=== PATIENT | male | born 1980 | race Caucasian/White ===

== ENCOUNTER 2018-03-11 08:53 | Outpatient (CLI) | payer OTHER ==
--- NOTE | 2018-03-11 17:47 | MRI Report ---
Reason: PAIN IN LEFT KNEE Procedure Date: 03/11/2018 Accession Number: [id number] / [id number] Procedure: MRI - Knee LT W/O CPT Code: FULL RESULT: EXAM: LEFT KNEE MRI WITHOUT CONTRAST. EXAM DATE: 03/11/2018 09:51 AM. CLINICAL HISTORY: Left knee pain, tenderness, and clicking. COMPARISON: None. TECHNIQUE: Multiplanar, multisequence T1-weighted and fluid-sensitive sequences of the knee without contrast. Other: None. FINDINGS: Bones: There is an approximately 5 x 4 x 3 mm well-circumscribed T2 hyperintense and T1 hypointense intramedullary lesion at the lateral femoral condyle. Small bone island at the lateral femoral condyle. No acute fracture. Small marginal osteophytes at the femoral condyles and medial tibial plateau. No subluxation. 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 Medial Meniscus: Focal radial oblique tear at the medial meniscal body. Small focal oblique tear at the posterior medial aspect of the posterior horn. Small perimeniscal cyst adjacent to the posterior horn. Lateral Meniscus: The lateral meniscus is intact. Cruciate Ligaments: The anterior and posterior cruciate ligaments are intact. Collateral Ligaments: The medial collateral and lateral collateral ligamentous structures are intact. Tendons: The quadriceps, patellar, semimembranosus, and popliteus tendons are unremarkable. Musculature: No edema or fatty atrophy. Other: No effusion. No popliteal cyst. No loose bodies. The medial and lateral retinacula are intact. The subcutaneous tissues and fat pads are unremarkable. IMPRESSION: 1. Oblique tear is at the posterior horn and body of the medial meniscus. Small perimeniscal cyst adjacent to the posterior horn medial meniscus. 2. A small 5 x 4 x 3 mm nonaggressive appearing intramedullary lesion at the lateral femoral condyle which may represent a cyst or enchondroma. 3. 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 [facility] MUSCULOSKELETAL RADIOLOGY SECTION
== END 2018-03-11 08:54 | disposition home or self-care (01) ==
LOC: DI 08:53
PROVIDERS: ATTEND Student in an Organized Health Care Education/Training Program
DX: S83.242A Other tear of medial meniscus, current injury, left knee, initial encounter (principal); M25.862 Other specified joint disorders, left knee; M94.262 Chondromalacia, left knee

== ENCOUNTER 2018-08-30 14:52 | Emergency (ER) | payer OTHER ==
--- NOTE | 2018-08-30 14:57 | ED Physician Documentation ---
PD HPI LOWER EXT INJURY - Stated complaint Stated Complaint: RT KNEE PAIN - History obtained from History obtained from: Patient - History of Present Illness PD HPI LOW EXT INJURY LOCATION: Right, Knee Type of injury: No: Fall, Twist Timing - onset: Yesterday (had some pain in right knee yesterday, without apparent injury. Has feeling of pressure in it and noted some swelling in knee today. Pain throughout the knee. Also having some pain around medial aspect of patella.) Improved by: Rest Worsened by: Moving. No: Palpating Associated symptoms: Swelling (feels some effusion of the knee.). No: Weakness, Numbness Similar symptoms before: Diagnosis (has had knee injuries with ACL, meniscus repairs in the past.) Recently seen: Not recently seen Review of Systems Constitutional: denies: Fever, Chills, Myalgias Throat: denies: Sore throat Respiratory: denies: Cough Skin: denies: Rash, Lesions Musculoskeletal: reports: Joint pain (right knee only) PD PAST MEDICAL HISTORY - Past Surgical History Past Surgical History: Yes Ortho: ACL reconstruction - Present Medications Home Medications: Ambulatory Orders Medication Instructions Recorded Confirmed Acetaminophen [Tylenol Extra 1,000 mg PO Q6HR 09/08/15 08/30/18 Strength] Ibuprofen [Motrin] 600 mg PO TID #30 tab 09/08/15 08/30/18 Hydrocodone/Acetaminophen [[place] 1 each PO Q6H PRN #15 tablet 08/30/18 5-325 Tablet] - Allergies Allergies/Adverse Reactions: Allergies Allergy/AdvReac Type Severity Reaction Status Date / Time No Known Drug Allergies Allergy Verified 08/30/18 15:01 - Social History Does the pt smoke?: No Smoking Status: Never smoker Does the pt drink ETOH?: Yes Does the pt have substance abuse?: No - Immunizations Immunizations are current?: Yes - POLST Patient has POLST: No PD ED PE NORMAL - Vitals Vital signs reviewed: Yes - General General: Alert and oriented X 3, Well developed/nourished - Derm Derm: Normal color, Warm and dry, No rash - Extremities Extremities: Other (right knee with some tenderness medial aspect patellar and distal quads. Mild cellophane feeling in that area with ROM of the knee, c/w likely some tendonitis. There is mild effusion of the knee as well, but not enough to even lose peripatellar "dimples". ACL firm and not painful. Collateral testing not loos nor hurting. Meniscal testing does cause some pain laterally and posteriorly. No locking. ) Results - Vitals Vitals: Vital Signs - 24 hr 08/30/18 14:59 Temperature 36.3 C L Heart Rate 74 Respiratory 16 Rate Blood Pressure 133/85 H O2 Saturation 98 Oxygen O2 Source Room air - Rads (name of study) right knee xray Radiology: Prelim report reviewed (prior surgical changes in place. No loose bodies nor fractures. ), See rad report PD MEDICAL DECISION MAKING - ED course Complexity details: reviewed results, considered differential (not enough effusion for tapping to have benefit. Seems likely meniscal flap or such with inflammation. ), d/w patient Departure - Departure Disposition: 01 Home, Self Care Clinical Impression: Meniscal injury Qualifiers: Encounter type: initial encounter Laterality: right Qualified Code(s): S83.8X1A - Sprain of other specified parts of right knee, initial encounter Patellar tendonitis Qualifiers: Laterality: right Qualified Code(s): M76.51 - Patellar tendinitis, right knee Condition: Stable Record reviewed to determine appropriate education?: Yes Instructions: ED Meniscal Injury Knee Poss Follow-Up: Basim Young MD [Primary Care Provider] - Prescriptions: Hydrocodone/Acetaminophen [[place] 5-325 Tablet] 1 each PO Q6H PRN #15 tablet PRN Reason: Pain Comments: Use 1 of your knee braces and crutches to help support the knee when up and around for the next week or so until follow-up. If he uses straight knee brace, that is okay. If he use a hinged 1 then set it for 0 to 30 degrees to minimize flexion beyond that point. Use some ibuprofen or naproxen 3 times daily. Add hydrocodone if needed for pain. Crutches as needed for partial weightbearing until improving. It seems like some element of patellar tendinitis in the front. However your deeper pain in the swelling of the joint seems likely to be meniscal. Your basic x-ray appears normal with the screws in place. Follow-up with your primary care and or orthopedics for further evaluation. They can decide if further imaging such as MRI is appropriate. Discharge Date/Time: 08/30/18 16:50
[2018-08-30 15:02] VITALS: BP 133/85
[2018-08-30] MEDS ORDERED: HYDROcod/ACETAM 5/325 MG TABLET PO STA (15:36)
--- NOTE | 2018-08-30 16:45 | XRAY Report ---
Reason: knee pain for several days Procedure Date: 08/30/2018 Accession Number: [id number] / [id number] Procedure: XR - Knee 3 View RT CPT Code: FULL RESULT: EXAM: RIGHT KNEE RADIOGRAPHY EXAM DATE: 08/30/2018 04:18 PM. CLINICAL HISTORY: Knee pain and swelling for several days. COMPARISON: KNEE 4 VIEW RT 07/09/2015 2:42 PM. TECHNIQUE: 3 views. FINDINGS: Bones: Interval ACL repair. No acute traumatic or destructive bony abnormalities. Joints: Joint effusion. No subluxations. Soft Tissues: Unremarkable. IMPRESSION: 1. Interval ACL repair. 2. Joint effusion. 3. No acute bony abnormalities. [facility]
== END 2018-08-30 16:50 | disposition home or self-care (01) ==
LOC: ED 14:52
DX: S83.8X1A Sprain of other specified parts of right knee, initial encounter (principal); X58.XXXA Exposure to other specified factors, initial encounter; M76.51 Patellar tendinitis, right knee; M25.461 Effusion, right knee
CPT/HCPCS: 73562; 99283; A9270

== ENCOUNTER 2018-09-19 07:10 | Outpatient (CLI) | payer OTHER ==
--- NOTE | 2018-09-22 08:19 | MRI Report ---
Reason: PAIN IN RIGHT KNEE Procedure Date: 09/19/2018 Accession Number: [id number] / [id number] Procedure: MRI - Knee RT W/O CPT Code: FULL RESULT: EXAM: RIGHT KNEE MRI WITHOUT CONTRAST EXAM DATE: 09/19/2018 07:28 AM. CLINICAL HISTORY: Right knee pain. History of ACL repair. COMPARISON: KNEE 3 VIEW RT 08/30/2018 4:05 PM. TECHNIQUE: Multiplanar, multisequence T1-weighted and fluid-sensitive sequences of the knee without contrast. Other: None. FINDINGS: Bones: There is artifact from the ACL graft. There is a screw through the proximal tibia, distal to the tibial tuberosity. There are no visible fractures. There are no foci of marrow edema. Articular Cartilage: There is mild erosion of the hyaline cartilage of the lateral compartment with a focal subchondral defect in the lateral femoral condyle suggestive of a prior osteochondral injury. There is minimal surface erosion in the medial compartment. Medial Meniscus: The medial meniscus is intact. Lateral Meniscus: There is truncation of the free margin of the posterior horn and body of the lateral meniscus suggestive of a small tear. Cruciate Ligaments: The ACL graft is intact. The PCL appears normal. There is a focus of predominantly intermediate T1, low T2 signal tissue with central high T2 signal, anterior to the ACL graft at its entry into the tibial tunnel. The findings are suggestive of a small focus of fibrosis. Collateral Ligaments: The medial collateral and lateral collateral ligamentous structures are intact. Tendons: The quadriceps, patellar, semimembranosus, and popliteus tendons are unremarkable. Musculature: No edema or fatty atrophy. Other: There is a small joint effusion. No popliteal cyst. No loose bodies. The medial and lateral retinacula are intact. The subcutaneous tissues and fat pads are unremarkable. IMPRESSION: 1. Tear of the free margin of the posterior horn and body of the lateral meniscus. 2. Prior osteochondral injury of the lateral femoral condyle. 3. Small joint effusion. 4. Focal scar tissue anterior to the ACL graft. [facility]
== END 2018-09-19 07:11 | disposition home or self-care (01) ==
LOC: DI 07:10
DX: S83.281A Other tear of lateral meniscus, current injury, right knee, initial encounter (principal); M25.461 Effusion, right knee

== ENCOUNTER 2018-10-07 11:00 | Emergency (ER) | payer OTHER ==
[2018-10-07 11:15] VITALS: BP 128/73
--- NOTE | 2018-10-07 11:46 | XRAY Report ---
Reason: injury Procedure Date: 10/07/2018 Accession Number: [id number] / [id number] Procedure: XR - Foot 3 View LT CPT Code: FULL RESULT: EXAM: LEFT FOOT RADIOGRAPHY EXAM DATE: 10/07/2018 11:31 AM. CLINICAL HISTORY: Heavy object fell onto foot 3 days ago. Foot injury. Pain focal to the dorsal aspect of left foot. COMPARISON: None. TECHNIQUE: 3 views. FINDINGS: Bones: Small irregular calcifications are seen along the medial aspect of the distal left talus seen only on the frontal view the largest measuring 2 mm. No other osseous abnormalities. Joints: Normal. No subluxations. Soft Tissues: Soft tissue swelling along the dorsal left foot. No radiopaque foreign bodies. IMPRESSION: 1. Calcific densities by the medial distal left talus, as described which may represent tiny chip fracture fragments in the appropriate clinical setting and less typical for accessory ossicle or changes related to prior trauma/degenerative changes. No other osseous abnormalities. 2. Soft tissue edema. [facility]
--- NOTE | 2018-10-07 12:09 | ED Physician Documentation ---
PD HPI LOWER EXT INJURY - Stated complaint Stated Complaint: LT FOOT PX - Chief complaint Chief Complaint: Ext Problem - History obtained from History obtained from: Patient - History of Present Illness PD HPI LOW EXT INJURY LOCATION: Left, Foot Type of injury: Blunt / blow (a piece of wood fell ontop of his foot) Where injury occurred: Home Timing - duration: Days (2) Timing - details: Abrupt onset Improved by: Rest Worsened by: Palpating Associated symptoms: No: Weakness, Numbness, Tingling, Swelling, Discolored Contributing factors: No: Anticoagulated, Prior ortho surgery, Prosthetic joint Similar symptoms before: Has not had sx before Recently seen: Not recently seen Review of Systems Ten Systems: 10 systems reviewed and negative Constitutional: denies: Fever, Chills Skin: reports: Reviewed and negative Musculoskeletal: reports: Extremity pain, Extremity swelling Neurologic: denies: Focal weakness, Numbness PD PAST MEDICAL HISTORY - Past Medical History Past Medical History: No - Past Surgical History Past Surgical History: Yes Ortho: ACL reconstruction - Present Medications Home Medications: Ambulatory Orders Medication Instructions Recorded Confirmed Acetaminophen [Tylenol Extra 1,000 mg PO Q6HR 09/08/15 08/30/18 Strength] Ibuprofen [Motrin] 600 mg PO TID #30 tab 09/08/15 08/30/18 Hydrocodone/Acetaminophen [[place] 1 each PO Q6H PRN #15 tablet 08/30/18 5-325 Tablet] - Allergies Allergies/Adverse Reactions: Allergies Allergy/AdvReac Type Severity Reaction Status Date / Time No Known Drug Allergies Allergy Verified 10/07/18 11:15 - Social History Does the pt smoke?: No Smoking Status: Never smoker Does the pt drink ETOH?: Yes Does the pt have substance abuse?: No - Immunizations Immunizations are current?: Yes - POLST Patient has POLST: No PD ED PE NORMAL - Vitals Vital signs reviewed: Yes - General General: Alert and oriented X 3, No acute distress, Well developed/nourished - HEENT HEENT: Atraumatic - Neck Neck: Supple, no meningeal sign - Cardiac Cardiac: RRR - Respiratory Respiratory: No respiratory distress - Abdomen Abdomen: Non distended - Male Male : Deferred - Rectal Rectal: Deferred - Derm Derm: Normal color, Warm and dry, No rash, Other (mild abrasion to top of L foot ) - Extremities Extremities: No deformity, Normal ROM s pain, Other (mild swelling to dorsum of left midfoot/ankle with overlying small abrasion, mild tenderness over the dorsum of the midfoot and proximal foot.) - Neuro Neuro: Alert and oriented X 3 Eye Opening: Spontaneous Motor: Obeys Commands Verbal: Oriented GCS Score: 15 - Psych Psych: Normal mood, Normal affect - Free text exam Free text exam: Patient able to bear weight Results - Vitals Vitals: Vital Signs - 24 hr 10/07/18 11:13 Temperature 36.7 C Heart Rate 69 Respiratory 18 Rate Blood Pressure 128/73 O2 Saturation 100 Oxygen O2 Source Room air - Rads (name of study) No standard instances Radiology: Final report received (L medial distal left talus with possible tiny chip fracture. ) PD MEDICAL DECISION MAKING - ED course Complexity details: reviewed results, re-evaluated patient, considered differential, d/w patient ED course: DDx - fracture, contusion, sprain 38 y/o m with likely tiny chip fracture off the L medial talus likely on xray. Pt has been weight bearing on this for 2 days and has some swelling but able to bear weight here. Advised, RICE and NSAIDs. Pt can continue to bear weight as tolerated and [place] Departure - Departure Disposition: 01 Home, Self Care Clinical Impression: Displaced avulsion fracture (chip fracture) of left talus, initial encounter for closed fracture Condition: Stable Record reviewed to determine appropriate education?: Yes Follow-Up: your, doctor [Other] Comments: You have a tiny chip fracture off the talus of your left foot. Take ibuprofen 600mg three times a day to reduce pain and swelling. ICe and elevate as much as possible. You can bear weight on this injury as tolerated. Follow up with Orthopedics in 1-2 weeks to recheck your symptoms.
== END 2018-10-07 12:24 | disposition home or self-care (01) ==
LOC: ED 11:00
DX: S92.152A Displaced avulsion fracture (chip fracture) of left talus, initial encounter for closed fracture (principal); W20.8XXA Other cause of strike by thrown, projected or falling object, initial encounter; Y92.009 Unspecified place in unspecified non-institutional (private) residence as the place of occurrence of the external cause
CPT/HCPCS: 99282; 99283

== ENCOUNTER 2019-10-30 23:24 | Outpatient (CLI) | payer OTHER | END 2019-10-30 23:25 | disposition critical access hospital (66) | LOC: EMS 23:24 | PROVIDERS: ATTEND Surgery | DX: S39.91XA Unspecified injury of abdomen, initial encounter (principal); W39.XXXA Discharge of firework, initial encounter; Y92.414 Local residential or business street as the place of occurrence of the external cause | CPT/HCPCS: A0425; A0427 ==

== ENCOUNTER 2019-10-30 23:43 | Inpatient (IN) | payer OTHER ==
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
[2019-10-30] MEDS ORDERED: TETANUS/DIPHTHERIA/PERTUSSIS 0.5 ML SYRINGE IM ONE (23:57)
[2019-10-30] MEDS ORDERED: HYDROmorphone 1 MG/ML CARPUJECT IVP STA (23:57)
[2019-10-31 00:01] LABS: BASOPHILS % (AUTO) 0.5 %; EOSINOPHILS # (AUTO) 0.1 10^3/uL (0.0-0.7); EOSINOPHILS % (AUTO) 1.1 %; HGB - HEMOGLOBIN 12.7 g/dL (14.0-18.0); LYMPHOCYTES # (AUTO) 3.3 10^3/uL (1.5-3.5); LYMPHOCYTES % (AUTO) 52.2 %; MEAN CORPUSCULAR HEMOGLOBIN 30.7 pg (27.0-31.0); MEAN CORPUSCULAR HGB CONC 33.5 g/dL (32.0-36.0); MEAN CORPUSCULAR VOLUME 91.5 fL (80.0-94.0); MEAN PLATELET VOLUME 8.4 fL (7.4-11.4); MONOCYTES # (AUTO) 0.4 10^3/uL (0.0-1.0); MONOCYTES % (AUTO) 6.7 %; NEUTROPHILS # (AUTO) 2.5 10^3/uL (1.5-6.6); NEUTROPHILS % (AUTO) 39.2 %; PLT - PLATELET COUNT 293 10^3/uL (130-450); RED BLOOD COUNT 4.14 10^6/uL (4.70-6.10); RED CELL DISTRIBUTION WIDTH 12.6 % (12.0-15.0); WHITE BLOOD COUNT 6.3 x10^3/uL (4.8-10.8)
[2019-10-31] MEDS ORDERED: IOVERSOL 320 100 ML VIAL IVP ONE ×2 (00:07→00:40)
[2019-10-31 00:10] LABS: BILIRUBIN,URINE NEGATIVE (NEGATIVE); GLUCOSE, URINE (UA) NEGATIVE (NEGATIVE); KETONES,URINE (UA) TRACE mg/dL (NEGATIVE); LEUKOCYTE ESTERASE, URINE NEGATIVE (NEGATIVE); NITRITE,URINE NEGATIVE (NEGATIVE); OCCULT BLOOD,URINE NEGATIVE (NEGATIVE); PROTEIN,URINE NEGATIVE (NEGATIVE); UROBILINOGEN,URINE 0.2 (NORMAL) E.U./dL (NORMAL)
[2019-10-31 00:11] LABS: ALBUMIN 4.5 g/dL (3.2-5.5); ALBUMIN/GLOBULIN RATIO 1.9 (1.0-2.2); BILIRUBIN,TOTAL 0.4 mg/dL (0.2-1.0); CALCIUM 8.4 mg/dL (8.5-10.3); CREATININE 1.2 mg/dL (0.6-1.2); TOTAL PROTEIN 6.9 g/dL (6.7-8.2)
[2019-10-31 00:12] LABS: CLARITY,URINE CLEAR (CLEAR)
[2019-10-31] MEDS ORDERED: PROPOFOL ONE (00:18)
[2019-10-31] MEDS ORDERED: SUCCINYLCHOLINE 200 MG/10 ML VIAL ONE (00:21)
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
[2019-10-31] MEDS ORDERED: HYDROmorphone 1 MG/ML CARPUJECT IVP STA (00:47)
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
[2019-10-31] MEDS ORDERED: LACTATED RINGERS 1,000 ML IV ONE ×3 (02:00→04:28)
[2019-10-31] MEDS ORDERED: SUGAMMADEX 200 MG/2 ML VIAL IVP ONE (02:29)
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
[2019-10-31] MEDS ORDERED: D5NS W/20 MEQ KCL 1,000 ML IV SCH (04:00)
[2019-10-31] MEDS: HYDROmorphone 1 MG/ML CARPUJECT ONE ×2 (04:03→04:13)
[2019-10-31] MEDS: POTASSIUM CHLOR 10 MEQ/100 ML 10 MEQ/100 ML BAG IV SCH ×2 (05:05→06:22)
[2019-10-31] MEDS: HYDROmorphone PCA 20MG/100ML IV PRN ×3 (05:34→14:34)
[2019-10-31] MEDS: SODIUM CHLORIDE FLUSH 0.9% 10 ML SYRINGE IVP PRN ×2 (05:58→06:20)
[2019-10-31] MEDS ORDERED: HYDROmorphone 0.5 MG/0.5 ML SYRINGE ONE (05:58)
[2019-10-31] MEDS: ACETAMINOPHEN 1,000 MG/100 ML 100 ML IV SCH ×3 (06:22→18:03)
[2019-10-31] MEDS ORDERED: INSULIN ASPART 300 UNIT/3 ML PEN SUBQ SCH (08:00)
[2019-10-31 08:10] LABS: ALBUMIN 3.9 g/dL (3.2-5.5); ALBUMIN/GLOBULIN RATIO 2.2 (1.0-2.2); BILIRUBIN,TOTAL 0.9 mg/dL (0.2-1.0); CALCIUM 7.8 mg/dL (8.5-10.3); CREATININE 0.9 mg/dL (0.6-1.2); TOTAL PROTEIN 5.7 g/dL (6.7-8.2)
[2019-10-31 08:11] LABS: BASOPHILS % (AUTO) 0.2 %; HGB - HEMOGLOBIN 11.5 g/dL (14.0-18.0); LYMPHOCYTES % (AUTO) 10.6 %; MEAN CORPUSCULAR HEMOGLOBIN 29.3 pg (27.0-31.0); MEAN CORPUSCULAR HGB CONC 32.5 g/dL (32.0-36.0); MEAN CORPUSCULAR VOLUME 90.3 fL (80.0-94.0); MEAN PLATELET VOLUME 8.6 fL (7.4-11.4); MONOCYTES # (AUTO) 0.6 10^3/uL (0.0-1.0); MONOCYTES % (AUTO) 6.2 %; NEUTROPHILS # (AUTO) 7.4 10^3/uL (1.5-6.6); NEUTROPHILS % (AUTO) 82.1 %; PLT - PLATELET COUNT 261 10^3/uL (130-450); RED BLOOD COUNT 3.92 10^6/uL (4.70-6.10); RED CELL DISTRIBUTION WIDTH 12.7 % (12.0-15.0)
[2019-10-31 08:30] LABS: HB2 TOTAL 12.2 g/dL; HEMOGLOBIN A1C 0.45 g/dL; HEMOGLOBIN A1C % 5.5 % (4.6-6.2)
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
--- NOTE | 2019-10-31 08:59 | XRAY Report ---
PROCEDURE: Chest for Line Placement INDICATIONS: NG tube placement TECHNIQUE: One view of the chest was acquired. COMPARISON: 10/30/2019 at 1142 hours FINDINGS: Surgical changes and devices: The NG tube is in place, projecting to the stomach.. Lungs and pleura: No pleural effusions or pneumothorax. Lungs are clear. Mediastinum: Mediastinal contours appear normal. Heart size is normal. Bones and chest wall: No suspicious bony lesions. Overlying soft tissues appear unremarkable. IMPRESSION: NG tube in satisfactory position. No evidence acute pulmonary process. A preliminary report with the above findings was provided at the time of the study by [facility]. Reviewed by: Mynor Chandra MD on 10/31/2019 7:58 AM SOILA Approved by: Mynor Chandra MD on 10/31/2019 7:58 AM SOILA Station ID: [id number]
[2019-10-31] MEDS: DOCUSATE SODIUM 100 MG CAPSULE PO SCH ×2 (09:09→21:17)
[2019-10-31] MEDS: polyethylene glycoL 3350 17 GM PACKET PO SCH ×2 (09:09→21:17)
[2019-10-31] MEDS: SODIUM CHLORIDE FLUSH 0.9% 10 ML SYRINGE IVP SCH ×2 (09:10→17:56)
[2019-10-31] MEDS: PANTOPRAZOLE 40 MG VIAL IV SCH (09:10)
[2019-10-31] MEDS: INSULIN REGULAR HUMAN 300 UNIT/3 ML VIAL SUBQ SCH ×3 (12:08→23:50)
[2019-10-31] MEDS ORDERED: ONDANSETRON 4 MG/2 ML VIAL IVP PRN (13:08)
[2019-10-31] MEDS ORDERED: HYDROmorphone PCA 20MG/100ML IV PRN (13:08)
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
[2019-10-31] MEDS ORDERED: ceFAZolin 2 GM in SODIUM CHLORIDE 0.9% 100ML 100 ML IV SCH (14:00)
[2019-10-31] MEDS ORDERED: GENTAMICIN PER PHARMACY IV SCH (14:00)
[2019-10-31] MEDS ORDERED: SODIUM CHLORIDE 0.9% IV SCH (14:00)
[2019-10-31] MEDS ORDERED: PROPOFOL 200 MG/20 ML VIAL IVP ONE (14:12)
[2019-10-31] MEDS ORDERED: MIDAZOLAM 2 MG/2 ML VIAL IVP ONE (14:12)
[2019-10-31] MEDS ORDERED: ROCURONIUM 50 MG/5 ML VIAL IVP ONE (14:12)
[2019-10-31] MEDS ORDERED: fentaNYL 100 MCG/2 ML VIAL IVP ONE (14:12)
[2019-10-31] MEDS ORDERED: KETAMINE 500 MG/10 ML VIAL IVP ONE (14:12)
[2019-10-31] MEDS ORDERED: ONDANSETRON 4 MG/2 ML VIAL IVP ONE (14:12)
[2019-10-31] MEDS ORDERED: LIDOCAINE-MPF 2% 5 ML VIAL IM ONE (14:12)
[2019-10-31] MEDS ORDERED: GLYCOPYRROLATE 1 MG/5 ML VIAL IVP ONE (14:12)
[2019-10-31] MEDS ORDERED: HYDROmorphone 1 MG/ML CARPUJECT IVP ONE (14:12)
[2019-10-31] MEDS ORDERED: ACETAMINOPHEN 1,000 MG/100 ML 100 ML IV ONE (14:12)
[2019-10-31] MEDS: GENTAMICIN 130 MG in SODIUM CHLORIDE 0.9% 50 ML IV SCH ×2 (14:27→21:18)
[2019-10-31] MEDS: LACTATED RINGERS 1,000 ML IV SCH (14:41)
[2019-10-31] MEDS: ceFAZolin 2 GM in SODIUM CHLORIDE 0.9% 100ML 100 ML IV SCH ×2 (14:41→21:55)
[2019-10-31] MEDS: METOCLOPRAMIDE 10 MG/2 ML VIAL IVP SCH (18:02)
[2019-11-01] MEDS: ACETAMINOPHEN 1,000 MG/100 ML 100 ML IV SCH ×5 (00:19→23:59)
[2019-11-01] MEDS: METOCLOPRAMIDE 10 MG/2 ML VIAL IVP SCH ×4 (00:19→17:28)
[2019-11-01] MEDS: SODIUM CHLORIDE FLUSH 0.9% 10 ML SYRINGE IVP SCH ×3 (00:20→17:42)
[2019-11-01 05:03] LABS: BASOPHILS % (AUTO) 0.5 %; EOSINOPHILS # (AUTO) 0.1 10^3/uL (0.0-0.7); EOSINOPHILS % (AUTO) 0.8 %; HGB - HEMOGLOBIN 11.8 g/dL (14.0-18.0); LYMPHOCYTES # (AUTO) 1.8 10^3/uL (1.5-3.5); LYMPHOCYTES % (AUTO) 22.9 %; MEAN CORPUSCULAR VOLUME 93.9 fL (80.0-94.0); MEAN PLATELET VOLUME 8.7 fL (7.4-11.4); MONOCYTES # (AUTO) 0.6 10^3/uL (0.0-1.0); MONOCYTES % (AUTO) 7.4 %; NEUTROPHILS # (AUTO) 5.4 10^3/uL (1.5-6.6); NEUTROPHILS % (AUTO) 68.1 %; PLT - PLATELET COUNT 237 10^3/uL (130-450); RED BLOOD COUNT 3.93 10^6/uL (4.70-6.10); RED CELL DISTRIBUTION WIDTH 12.7 % (12.0-15.0); WHITE BLOOD COUNT 7.9 x10^3/uL (4.8-10.8)
[2019-11-01 05:14] LABS: ALBUMIN 3.5 g/dL (3.2-5.5); ALBUMIN/GLOBULIN RATIO 1.6 (1.0-2.2); BILIRUBIN,TOTAL 0.7 mg/dL (0.2-1.0); CALCIUM 7.9 mg/dL (8.5-10.3); TOTAL PROTEIN 5.7 g/dL (6.7-8.2)
[2019-11-01] MEDS: INSULIN REGULAR HUMAN 300 UNIT/3 ML VIAL SUBQ SCH ×3 (05:52→17:22)
[2019-11-01] MEDS: ceFAZolin 2 GM in SODIUM CHLORIDE 0.9% 100ML 100 ML IV SCH ×3 (05:58→21:46)
[2019-11-01] MEDS: GENTAMICIN 130 MG in SODIUM CHLORIDE 0.9% 50 ML IV SCH ×3 (06:19→21:46)
--- NOTE | 2019-11-01 06:52 | ANESTHESIA ---
Pre-Anesthesia VS, & Labs - Diagnosis Flank wound - Procedure Wound Vac Vital Signs: Temp Pulse Resp BP Pulse Ox 37.1 C 63 15 114/56 L 99 11/01/19 04:00 11/01/19 05:00 11/01/19 06:22 11/01/19 05:00 11/01/19 05:00 Height 6 ft 3 in Weight (kg) 109.5 kg Body Mass Index 30.2 - NPO >8 hours - Lab Results Current Lab Results: Laboratory Tests 11/01/19 04:40: Sodium 137, Potassium 3.7, Chloride 105, Carbon Dioxide 28, Anion Gap 4.0 L, BUN 13, Creatinine 1.0, Estimated GFR (MDRD) 84 L, Glucose 113 H, Calcium 7.9 L, Total Bilirubin 0.7, AST 26, ALT 25, Alkaline Phosphatase 38 L , Total Protein 5.7 L, Albumin 3.5, Globulin 2.2, Albumin/Globulin Ratio 1.6 11/01/19 04:40: WBC 7.9, RBC 3.93 L, Hgb 11.8 L, Hct 36.9 L, MCV 93.9, MCH 30.0, MCHC 32.0, RDW 12.7, Plt Count 237, MPV 8.7, Neut # (Auto) 5.4, Lymph # (Auto) 1.8, [place] # (Auto) 0.6, Eos # (Auto) 0.1, Baso # (Auto) 0.0, Absolute Nucleated RBC 0.00, Nucleated RBC % 0.0 10/31/19 07:52: Sodium 135, Potassium 3.9, Chloride 101, Carbon Dioxide 25, Anion Gap 9.0, BUN 20, Creatinine 0.9, Estimated GFR (MDRD) 94, Glucose 148 H, Calcium 7.8 L, Total Bilirubin 0.9, AST 31, ALT 32, Alkaline Phosphatase 43, Total Protein 5.7 L, Albumin 3.9, Globulin 1.8 L, Albumin/Globulin Ratio 2.2 10/31/19 07:52: WBC 9.0, RBC 3.92 L, Hgb 11.5 L, Hct 35.4 L, MCV 90.3, MCH 29.3, MCHC 32.5, RDW 12.7, Plt Count 261, MPV 8.6, Neut # (Auto) 7.4 H, Lymph # (Auto) 1.0 L, [place] # (Auto) 0.6, Eos # (Auto) 0.0, Baso # (Auto) 0.0, Absolute Nucleated RBC 0.00, Nucleated RBC % 0.0 10/31/19 07:52: Glycated Hemoglobin 5.5, Estim Average Glucose 111 H 10/30/19 23:50: Sodium 139, Potassium 3.4 L, Chloride 104, Carbon Dioxide 26, Anion Gap 9.0, BUN 26 H, Creatinine 1.2, Estimated GFR (MDRD) 68 L, Glucose 108 H, Calcium 8.4 L, Total Bilirubin 0.4, AST 39, ALT 36, Alkaline Phosphatase 58, Total Protein 6.9, Albumin 4.5, Globulin 2.4, Albumin/Globulin Ratio 1.9, Lipase 30 10/30/19 23:50: WBC 6.3, RBC 4.14 L, Hgb 12.7 L, Hct 37.9 L, MCV 91.5, MCH 30.7, MCHC 33.5, RDW 12.6, Plt Count 293, MPV 8.4, Neut # (Auto) 2.5, Lymph # (Auto) 3.3, [place] # (Auto) 0.4, Eos # (Auto) 0.1, Baso # (Auto) 0.0, Absolute Nucleated RBC 0.00, Nucleated RBC % 0.0 Fish Bones: 11/01/19 04:40 11/01/19 04:40 Home Medications and Allergies Home Medications: Ambulatory Orders Loratadine [Claritin] 10 mg PO DAILY 10/31/19 Active Medications Docusate Sodium (Colace 100mg Capsule) 100 mg PO BID [facility] Last Admin: 10/31/19 21:17 Dose: 100 mg Documented by: Hydromorphone HCl (Dilaudid Textile Knitter 20mg/100ml) 0 mg IV PRN PRN; Protocol PRN Reason: PAIN Acetaminophen (Ofirmev) 100 mls @ 400 mls/hr IV Q6HR [facility] Last Infusion: 11/01/19 06:18 Dose: Infused Documented by: Lactated Ringer's (Lr) 1,000 mls @ 50 mls/hr IV .Q20H [facility] Last Admin: 10/31/19 14:41 Dose: 50 mls/hr Documented by: Cefazolin Sodium 2 gm/ Sodium (Chloride) 100 mls @ 200 mls/hr IV Q8H [facility] Last Infusion: 11/01/19 06:42 Dose: Infused Documented by: Gentamicin Sulfate 130 mg/ (Sodium Chloride) 53.25 mls @ 106.5 mls/hr IV Q8H [facility] Last Admin: 11/01/19 06:19 Dose: 106.5 mls/hr Documented by: Insulin Human Regular (Humulin R) 1 - 5 unit SUBQ Q6HR [facility]; Protocol Last Admin: 11/01/19 05:52 Dose: Not Given Documented by: Metoclopramide HCl (Reglan Inj) 10 mg IVP Q6HR [facility] Last Admin: 11/01/19 05:57 Dose: 10 mg Documented by: Ondansetron HCl (Zofran Inj) 4 mg IVP Q6HR PRN PRN Reason: Nausea / Vomiting Last Admin: 10/31/19 14:27 Dose: 4 mg Documented by: Pantoprazole Sodium (Protonix) 40 mg IV DAILY [facility] Last Admin: 10/31/19 09:10 Dose: 40 mg Documented by: Polyethylene Glycol (Miralax) 17 gm PO BID [facility] Last Admin: 10/31/19 21:17 Dose: 17 gm Documented by: Sodium Chloride (Normal Saline Flush 0.9%) 10 ml IVP 0100,0900,1700 [facility] Last Admin: 11/01/19 00:20 Dose: 10 ml Documented by: Sodium Chloride (Normal Saline Flush 0.9%) 10 ml IVP PRN PRN PRN Reason: NEEDED PER PROVIDER ORDERS Last Admin: 10/31/19 06:20 Dose: 10 ml Documented by: Loratadine [Claritin] 10 mg PO DAILY 10/31/19 Allergies/Adverse Reactions: Allergies Allergy/AdvReac Type Severity Reaction Status Date / Time No Known Drug Allergies Allergy Verified 10/07/18 11:15 Anes History & Medical History - Anesthetic History Anesthesia Complications: reports: No previous complications Family history of Anesthesia Complications: Denies Family history of Malignant Hyperthermia: Denies - Medical History Cardiovascular: reports: None Pulmonary: reports: None Gastrointestinal: reports: None Urinary: reports: None Neuro: reports: None Musculoskeletal: reports: None Endocrine/Autoimmune: reports: None Blood Disorders: reports: None Skin: reports: None Smoking Status: Never smoker Psychosocial: reports: Alcohol (couple times a week.) - Surgical History General: Other Orthopedic: ACL reconstruction Exam General: Alert, Oriented x3, Cooperative Dental: WNL Mouth Openin Fingerbreadth Neck Mobility: Normal Mallampati classification: II Thyromental Distance: 4-6 cm Respiratory: Lungs clear Cardiovascular: Regular rate, Normal S1, Normal S2 Abdomen: Normal bowel sounds Plan Anesthesia Type: Total IV Consent for Procedure(s) Verified and Reviewed: Yes Code Status: Attempt Resuscitation ASA classification: 2-Mild systemic disease Is this case an emergency?: Yes
[2019-11-01] MEDS ORDERED: LACTATED RINGERS 1,000 ML IV ONE (07:16)
[2019-11-01] MEDS ORDERED: PROPOFOL 200 MG/20 ML VIAL IVP ONE (07:56)
[2019-11-01] MEDS ORDERED: BUPIVACAINE 0.25% PF 30 ML VIAL SUBQ ONE ×2 (07:56)
[2019-11-01] MEDS ORDERED: KETOROLAC 30 MG/ML VIAL IVP ONE (07:56)
[2019-11-01] MEDS ORDERED: GLYCOPYRROLATE 1 MG/5 ML VIAL IVP ONE (07:56)
[2019-11-01] MEDS ORDERED: BUPIVACAINE 0.25% PF 30 ML VIAL ONE ×2 (07:56→08:14)
[2019-11-01] MEDS ORDERED: fentaNYL 100 MCG/2 ML VIAL IVP ONE (07:56)
[2019-11-01] MEDS ORDERED: LIDOCAINE-MPF 2% 5 ML VIAL IM ONE (07:56)
[2019-11-01] MEDS ORDERED: MIDAZOLAM 2 MG/2 ML VIAL IVP ONE (07:56)
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
[2019-11-01] MEDS: DOCUSATE SODIUM 100 MG CAPSULE PO SCH ×2 (11:17→20:25)
[2019-11-01] MEDS: polyethylene glycoL 3350 17 GM PACKET PO SCH ×2 (11:17→20:25)
[2019-11-01] MEDS: PANTOPRAZOLE 40 MG VIAL IV SCH (11:47)
--- NOTE | 2019-11-01 14:22 | PROVIDER PROGRESS NOTE ---
Subjective - Prog Note Date Prog Note Date: 11/01/19 Prog Note Time: 14:21 - Subjective Subjective: I expect this patient to be discharged or transferred withing 96 hours of admission Objective - Vital Signs/Intake & Output Vital Signs: Vital Signs x48h Temp Pulse Resp BP Pulse Ox 11/01/19 13:00 53 L 13 96/60 94 11/01/19 10:05 37.1 C 55 L 16 86/64 L 98 11/01/19 09:00 85 20 97/57 L 99 11/01/19 08:46 61 12 93/53 L 98 11/01/19 08:41 36.7 C 62 12 118/54 L 96 11/01/19 06:22 15 Intake & Output: Intake & Output 10/29/19 10/30/19 10/31/19 11/01/19 23:59 23:59 23:59 23:59 Intake Total 2406.50 300 Output Total 2410 1430 Balance -3.50 -1130 - Lab Results Fish Bones: 11/01/19 04:40 11/01/19 04:40 Other Labs: Lab Results x24hrs 11/01/19 11/01/19 Range/Units 04:40 04:40 WBC 7.9 (4.8-10.8) x10^3/uL RBC 3.93 L (4.70-6.10) 10^6/uL Hgb 11.8 L (14.0-18.0) g/dL Hct 36.9 L (42.0-52.0) % MCV 93.9 (80.0-94.0) fL MCH 30.0 (27.0-31.0) pg MCHC 32.0 (32.0-36.0) g/dL RDW 12.7 (12.0-15.0) % Plt Count 237 (130-450) 10^3/uL MPV 8.7 (7.4-11.4) fL Neut # (Auto) 5.4 (1.5-6.6) 10^3/uL Lymph # (Auto) 1.8 (1.5-3.5) 10^3/uL [place] # (Auto) 0.6 (0.0-1.0) 10^3/uL Eos # (Auto) 0.1 (0.0-0.7) 10^3/uL Baso # (Auto) 0.0 (0.0-0.1) 10^3/uL Absolute Nucleated RBC 0.00 x10^3/uL Nucleated RBC % 0.0 /100WBC Sodium 137 (135-145) mmol/L Potassium 3.7 (3.5-5.0) mmol/L Chloride 105 (101-111) mmol/L Carbon Dioxide 28 (21-32) mmol/L Anion Gap 4.0 L (6-13) BUN 13 (6-20) mg/dL Creatinine 1.0 (0.6-1.2) mg/dL Estimated GFR (MDRD) 84 L (>89) Glucose 113 H (70-100) mg/dL Calcium 7.9 L (8.5-10.3) mg/dL Total Bilirubin 0.7 (0.2-1.0) mg/dL AST 26 (10-42) IU/L ALT 25 (10-60) IU/L Alkaline Phosphatase 38 L (42-121) IU/L Total Protein 5.7 L (6.7-8.2) g/dL Albumin 3.5 (3.2-5.5) g/dL Globulin 2.2 (2.1-4.2) g/dL Albumin/Globulin Ratio 1.6 (1.0-2.2)
[2019-11-01] MEDS: LACTATED RINGERS 1,000 ML IV SCH (17:42)
[2019-11-01] MEDS: SODIUM CHLORIDE FLUSH 0.9% 10 ML SYRINGE IVP PRN (21:47)
[2019-11-02] MEDS: METOCLOPRAMIDE 10 MG/2 ML VIAL IVP SCH ×5 (00:22→23:54)
[2019-11-02] MEDS: INSULIN REGULAR HUMAN 300 UNIT/3 ML VIAL SUBQ SCH ×3 (00:23→12:22)
[2019-11-02] MEDS: SODIUM CHLORIDE FLUSH 0.9% 10 ML SYRINGE IVP SCH ×4 (02:02→23:55)
[2019-11-02 04:53] LABS: BASOPHILS % (AUTO) 0.3 %; EOSINOPHILS # (AUTO) 0.1 10^3/uL (0.0-0.7); EOSINOPHILS % (AUTO) 0.9 %; HGB - HEMOGLOBIN 10.9 g/dL (14.0-18.0); LYMPHOCYTES # (AUTO) 1.8 10^3/uL (1.5-3.5); LYMPHOCYTES % (AUTO) 23.4 %; MEAN CORPUSCULAR HEMOGLOBIN 30.6 pg (27.0-31.0); MEAN CORPUSCULAR HGB CONC 33.6 g/dL (32.0-36.0); MEAN PLATELET VOLUME 8.5 fL (7.4-11.4); MONOCYTES # (AUTO) 0.6 10^3/uL (0.0-1.0); MONOCYTES % (AUTO) 7.1 %; NEUTROPHILS # (AUTO) 5.3 10^3/uL (1.5-6.6); PLT - PLATELET COUNT 215 10^3/uL (130-450); RED BLOOD COUNT 3.56 10^6/uL (4.70-6.10); RED CELL DISTRIBUTION WIDTH 12.2 % (12.0-15.0); WHITE BLOOD COUNT 7.8 x10^3/uL (4.8-10.8)
[2019-11-02 05:04] LABS: ALBUMIN 3.5 g/dL (3.2-5.5); ALBUMIN/GLOBULIN RATIO 1.7 (1.0-2.2); BILIRUBIN,TOTAL 1.1 mg/dL (0.2-1.0); CALCIUM 7.9 mg/dL (8.5-10.3); CREATININE 0.9 mg/dL (0.6-1.2); TOTAL PROTEIN 5.6 g/dL (6.7-8.2)
[2019-11-02] MEDS: ACETAMINOPHEN 1,000 MG/100 ML 100 ML IV SCH ×4 (06:11→23:54)
[2019-11-02] MEDS: GENTAMICIN 130 MG in SODIUM CHLORIDE 0.9% 50 ML IV SCH ×3 (06:12→21:26)
[2019-11-02] MEDS: SODIUM CHLORIDE FLUSH 0.9% 10 ML SYRINGE IVP PRN ×5 (06:12→21:26)
[2019-11-02] MEDS: ceFAZolin 2 GM in SODIUM CHLORIDE 0.9% 100ML 100 ML IV SCH ×3 (06:12→22:07)
[2019-11-02] MEDS: LACTATED RINGERS 1,000 ML IV SCH ×2 (06:59→11:04)
[2019-11-02] MEDS: MULTIVITAMIN W/MINERALS TABLET PO SCH (08:21)
[2019-11-02] MEDS: DOCUSATE SODIUM 100 MG CAPSULE PO SCH ×2 (08:21→20:14)
[2019-11-02] MEDS: LACTOBACILLUS RHAMNOSUS GG CAPSULE PO SCH (08:22)
[2019-11-02] MEDS: LORATADINE 10 MG TABLET PO SCH (08:22)
[2019-11-02] MEDS: PANTOPRAZOLE 40 MG VIAL IV SCH (08:31)
[2019-11-02] MEDS: polyethylene glycoL 3350 17 GM PACKET PO SCH ×2 (08:32→20:14)
--- NOTE | 2019-11-02 12:34 | PROVIDER PROGRESS NOTE ---
Subjective - Prog Note Date Prog Note Date: 11/02/19 Prog Note Time: 12:31 - Subjective Pt reports feeling: Improved Subjective: A little less pain today. Staff reports he is using his CINDER SNAPPER only rarely. Good spirits. Still with decreased appetite. Passing flatus. Current Medications - Current Medications Current Medications: Active Medications Docusate Sodium (Colace 100mg Capsule) 100 mg PO BID [facility] Last Admin: 11/02/19 08:21 Dose: 100 mg Documented by: Hydromorphone HCl (Dilaudid Copy Chaser 20mg/100ml) 0 mg IV PRN PRN; Protocol PRN Reason: PAIN Last Admin: 11/01/19 13:31 Dose: 20 mg Documented by: Acetaminophen (Ofirmev) 100 mls @ 400 mls/hr IV Q6HR [facility] Last Admin: 11/02/19 12:16 Dose: 400 mls/hr Documented by: Lactated Ringer's (Lr) 1,000 mls @ 50 mls/hr IV .Q20H [facility] Last Admin: 11/02/19 11:04 Dose: 50 mls/hr Documented by: Cefazolin Sodium 2 gm/ Sodium (Chloride) 100 mls @ 200 mls/hr IV Q8H [facility] Last Infusion: 11/02/19 06:58 Dose: Infused Documented by: Gentamicin Sulfate 130 mg/ (Sodium Chloride) 53.25 mls @ 106.5 mls/hr IV Q8H [facility] Last Infusion: 11/02/19 06:58 Dose: Infused Documented by: Insulin Human Regular (Humulin R) 1 - 5 unit SUBQ Q6HR [facility]; Protocol Last Admin: 11/02/19 12:22 Dose: Not Given Documented by: Lactobacillus Rhamnosus (Culturelle) 1 cap PO DAILY [facility] Last Admin: 11/02/19 08:22 Dose: 1 cap Documented by: Loratadine (Claritin) 10 mg PO DAILY [facility] Last Admin: 11/02/19 08:22 Dose: 10 mg Documented by: Metoclopramide HCl (Reglan Inj) 10 mg IVP Q6HR [facility] Last Admin: 11/02/19 12:22 Dose: 10 mg Documented by: Multivitamins/Minerals (Theragran M) 1 tab PO DAILYWM [facility] Last Admin: 11/02/19 08:21 Dose: 1 tab Documented by: Ondansetron HCl (Zofran Inj) 4 mg IVP Q6HR PRN PRN Reason: Nausea / Vomiting Last Admin: 10/31/19 14:27 Dose: 4 mg Documented by: Pantoprazole Sodium (Protonix) 40 mg IV DAILY [facility] Last Admin: 11/02/19 08:31 Dose: 40 mg Documented by: Polyethylene Glycol (Miralax) 17 gm PO BID [facility] Last Admin: 11/02/19 08:32 Dose: 17 gm Documented by: Sodium Chloride (Normal Saline Flush 0.9%) 10 ml IVP 0100,0900,1700 [facility] Last Admin: 11/02/19 08:35 Dose: 20 ml Documented by: Sodium Chloride (Normal Saline Flush 0.9%) 10 ml IVP PRN PRN PRN Reason: NEEDED PER PROVIDER ORDERS Last Admin: 11/02/19 12:24 Dose: 10 ml Documented by: Loratadine [Claritin] 10 mg PO DAILY 10/31/19 Objective - Vital Signs/Intake & Output Reviewed Vital Signs: Yes Vital Signs: Vital Signs x48h Temp Pulse Resp BP BP Pulse Ox 11/02/19 11:50 62 14 129/78 96 11/02/19 11:00 68 16 146/91 H 97 11/02/19 10:00 70 19 126/82 H 100 11/02/19 09:00 75 19 131/80 H 98 11/02/19 08:03 37.1 C 74 17 135/78 H 98 11/02/19 06:08 22 11/02/19 06:07 90 19 112/70 100 11/02/19 05:00 37.1 C 60 15 122/60 95 Intake & Output: Intake & Output 10/30/19 10/31/19 11/01/19 11/02/19 23:59 23:59 23:59 23:59 Intake Total 2406.50 2299.75 2171.583 Output Total 2410 2040 1930 Balance -3.50 259.75 241.583 - Objective General Appearance: positive: No acute distress, Alert Eyes Bilateral: positive: Normal inspection, PERRL Abdomen: positive: Other (Dressing in place. Blanching erythema over the thighs and scrotum is essentially unchanged. No evidence of tissue loss or necrosis. Active bowel sounds) Extremities: positive: Non-tender Neurologic/Psychiatric: positive: Oriented x3 - Lab Results Fish Bones: 11/02/19 04:42 11/02/19 04:42 Other Labs: Lab Results x24hrs 11/02/19 11/02/19 11/01/19 Range/Units 04:42 04:42 13:26 WBC 7.8 (4.8-10.8) x10^3/uL RBC 3.56 L (4.70-6.10) 10^6/uL Hgb 10.9 L (14.0-18.0) g/dL Hct 32.4 L (42.0-52.0) % MCV 91.0 (80.0-94.0) fL MCH 30.6 (27.0-31.0) pg MCHC 33.6 (32.0-36.0) g/dL RDW 12.2 (12.0-15.0) % Plt Count 215 (130-450) 10^3/uL MPV 8.5 (7.4-11.4) fL Neut # (Auto) 5.3 (1.5-6.6) 10^3/uL Lymph # (Auto) 1.8 (1.5-3.5) 10^3/uL [place] # (Auto) 0.6 (0.0-1.0) 10^3/uL Eos # (Auto) 0.1 (0.0-0.7) 10^3/uL Baso # (Auto) 0.0 (0.0-0.1) 10^3/uL Absolute Nucleated RBC 0.00 x10^3/uL Nucleated RBC % 0.0 /100WBC Sodium 140 (135-145) mmol/L Potassium 3.5 (3.5-5.0) mmol/L Chloride 105 (101-111) mmol/L Carbon Dioxide 26 (21-32) mmol/L Anion Gap 9.0 (6-13) BUN 12 (6-20) mg/dL Creatinine 0.9 (0.6-1.2) mg/dL Estimated GFR (MDRD) 94 (>89) Glucose 101 H (70-100) mg/dL POC Whole Bld Glucose 96 (70 - 100) mg/dL Calcium 7.9 L (8.5-10.3) mg/dL Total Bilirubin 1.1 H (0.2-1.0) mg/dL AST 21 (10-42) IU/L ALT 21 (10-60) IU/L Alkaline Phosphatase 35 L (42-121) IU/L Total Protein 5.6 L (6.7-8.2) g/dL Albumin 3.5 (3.2-5.5) g/dL Globulin 2.1 (2.1-4.2) g/dL Albumin/Globulin Ratio 1.7 (1.0-2.2) 11/01/19 10/31/19 Range/Units 05:29 23:49 WBC (4.8-10.8) x10^3/uL RBC (4.70-6.10) 10^6/uL Hgb (14.0-18.0) g/dL Hct (42.0-52.0) % MCV (80.0-94.0) fL MCH (27.0-31.0) pg MCHC (32.0-36.0) g/dL RDW (12.0-15.0) % Plt Count (130-450) 10^3/uL MPV (7.4-11.4) fL Neut # (Auto) (1.5-6.6) 10^3/uL Lymph # (Auto) (1.5-3.5) 10^3/uL [place] # (Auto) (0.0-1.0) 10^3/uL Eos # (Auto) (0.0-0.7) 10^3/uL Baso # (Auto) (0.0-0.1) 10^3/uL Absolute Nucleated RBC x10^3/uL Nucleated RBC % /100WBC Sodium (135-145) mmol/L Potassium (3.5-5.0) mmol/L Chloride (101-111) mmol/L Carbon Dioxide (21-32) mmol/L Anion Gap (6-13) BUN (6-20) mg/dL Creatinine (0.6-1.2) mg/dL Estimated GFR (MDRD) (>89) Glucose (70-100) mg/dL POC Whole Bld Glucose 108 H 103 H (70 - 100) mg/dL Calcium (8.5-10.3) mg/dL Total Bilirubin (0.2-1.0) mg/dL AST (10-42) IU/L ALT (10-60) IU/L Alkaline Phosphatase (42-121) IU/L Total Protein (6.7-8.2) g/dL Albumin (3.2-5.5) g/dL Globulin (2.1-4.2) g/dL Albumin/Globulin Ratio (1.0-2.2) ABX Reporting Has patient been on IV antibiotics over the past 48 hours?: Yes Assessment/Plan - Problem List (1) Penetrating abdominal trauma Impression: Improvin. D/C CINDER SNAPPER and start oxycodone and gabapentin 2. Change to oral protonix 3. continue antibiotics 4. change to floor status 5. encourage po protein in take 6. plan for dressing change at the bedside on . Qualifiers: Encounter type: initial encounter Qualified Code(s): S31.109A - Unspecified open wound of abdominal wall, unspecified quadrant without penetration into peritoneal cavity, initial encounter
[2019-11-02] MEDS: oxyCODONE 5 MG TABLET PO PRN ×2 (16:18→21:26)
[2019-11-02] MEDS: SENNA 8.6 MG TABLET PO SCH (20:14)
[2019-11-02] MEDS: GABAPENTIN 300 MG CAPSULE PO SCH (21:26)
[2019-11-03] MEDS: oxyCODONE 5 MG TABLET PO PRN ×4 (04:21→21:16)
[2019-11-03 04:57] LABS: BASOPHILS % (AUTO) 0.4 %; EOSINOPHILS # (AUTO) 0.2 10^3/uL (0.0-0.7); EOSINOPHILS % (AUTO) 2.4 %; HGB - HEMOGLOBIN 11.4 g/dL (14.0-18.0); LYMPHOCYTES # (AUTO) 1.6 10^3/uL (1.5-3.5); LYMPHOCYTES % (AUTO) 23.5 %; MEAN CORPUSCULAR HEMOGLOBIN 29.6 pg (27.0-31.0); MEAN CORPUSCULAR HGB CONC 32.9 g/dL (32.0-36.0); MEAN CORPUSCULAR VOLUME 90.1 fL (80.0-94.0); MEAN PLATELET VOLUME 8.8 fL (7.4-11.4); MONOCYTES # (AUTO) 0.5 10^3/uL (0.0-1.0); MONOCYTES % (AUTO) 6.9 %; NEUTROPHILS # (AUTO) 4.5 10^3/uL (1.5-6.6); NEUTROPHILS % (AUTO) 66.2 %; PLT - PLATELET COUNT 262 10^3/uL (130-450); RED BLOOD COUNT 3.85 10^6/uL (4.70-6.10); RED CELL DISTRIBUTION WIDTH 12.5 % (12.0-15.0); WHITE BLOOD COUNT 6.8 x10^3/uL (4.8-10.8)
[2019-11-03 05:08] LABS: ALBUMIN 3.7 g/dL (3.2-5.5); ALBUMIN/GLOBULIN RATIO 1.6 (1.0-2.2); BILIRUBIN,TOTAL 0.8 mg/dL (0.2-1.0); CALCIUM 8.5 mg/dL (8.5-10.3)
[2019-11-03] MEDS: METOCLOPRAMIDE 10 MG/2 ML VIAL IVP SCH ×3 (06:14→17:54)
[2019-11-03] MEDS: ceFAZolin 2 GM in SODIUM CHLORIDE 0.9% 100ML 100 ML IV SCH ×3 (06:14→21:19)
[2019-11-03] MEDS: SODIUM CHLORIDE FLUSH 0.9% 10 ML SYRINGE IVP PRN (06:14)
[2019-11-03] MEDS: PANTOPRAZOLE 40 MG TABLET PO SCH (07:02)
[2019-11-03] MEDS: GENTAMICIN 130 MG in SODIUM CHLORIDE 0.9% 50 ML IV SCH ×3 (07:02→21:55)
[2019-11-03] MEDS: ACETAMINOPHEN 1,000 MG/100 ML 100 ML IV SCH ×2 (07:42→12:16)
[2019-11-03] MEDS: polyethylene glycoL 3350 17 GM PACKET PO SCH ×2 (08:08→21:17)
[2019-11-03] MEDS: LACTOBACILLUS RHAMNOSUS GG CAPSULE PO SCH (08:11)
[2019-11-03] MEDS: MULTIVITAMIN W/MINERALS TABLET PO SCH (08:11)
[2019-11-03] MEDS: SENNA 8.6 MG TABLET PO SCH (08:11)
[2019-11-03] MEDS: DOCUSATE SODIUM 100 MG CAPSULE PO SCH ×2 (08:11→21:16)
[2019-11-03] MEDS: SODIUM CHLORIDE FLUSH 0.9% 10 ML SYRINGE IVP SCH ×3 (08:15→21:05)
[2019-11-03] MEDS: LORATADINE 10 MG TABLET PO SCH (08:15)
[2019-11-03] MEDS: GABAPENTIN 300 MG CAPSULE PO SCH ×2 (09:18→21:16)
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
[2019-11-03] MEDS: ACETAMINOPHEN 325 MG TABLET PO PRN ×2 (15:26→19:40)
[2019-11-03] MEDS ORDERED: SENNA 8.6 MG TABLET PO SCH (21:00)
[2019-11-03] MEDS ORDERED: SODIUM CHLORIDE 0.9% 50 ML IV ONE (21:19)
[2019-11-04] MEDS: METOCLOPRAMIDE 10 MG/2 ML VIAL IVP SCH ×2 (00:59→05:26)
[2019-11-04] MEDS: oxyCODONE 5 MG TABLET PO PRN ×4 (00:59→13:29)
[2019-11-04] MEDS: ACETAMINOPHEN 325 MG TABLET PO PRN ×4 (00:59→13:30)
[2019-11-04] MEDS: SODIUM CHLORIDE FLUSH 0.9% 10 ML SYRINGE IVP PRN (01:00)
[2019-11-04] MEDS: ceFAZolin 2 GM in SODIUM CHLORIDE 0.9% 100ML 100 ML IV SCH (05:21)
[2019-11-04] MEDS: GENTAMICIN 130 MG in SODIUM CHLORIDE 0.9% 50 ML IV SCH (05:55)
[2019-11-04] MEDS: PANTOPRAZOLE 40 MG TABLET PO SCH (06:52)
[2019-11-04] MEDS: LORATADINE 10 MG TABLET PO SCH (08:43)
[2019-11-04] MEDS: GABAPENTIN 300 MG CAPSULE PO SCH (08:44)
[2019-11-04] MEDS: MULTIVITAMIN W/MINERALS TABLET PO SCH (08:44)
[2019-11-04] MEDS: SENNA 8.6 MG TABLET PO SCH (08:44)
[2019-11-04] MEDS: LACTOBACILLUS RHAMNOSUS GG CAPSULE PO SCH (08:45)
[2019-11-04] MEDS: polyethylene glycoL 3350 17 GM PACKET PO SCH (08:48)
[2019-11-04] MEDS: DOCUSATE SODIUM 100 MG CAPSULE PO SCH (08:48)
[2019-11-04 09:26] VITALS: BP 130/85
[2019-11-04] MEDS: HYDROmorphone 0.5 MG/0.5 ML SYRINGE IVP PRN ×2 (12:26→12:39)
[2019-11-04] MEDS: SODIUM CHLORIDE FLUSH 0.9% 10 ML SYRINGE IVP SCH (12:41)
--- NOTE | 2019-11-04 12:44 | Discharge Plan ---
Discharge Plan Problem Reviewed?: Yes Disposition: Home, Self Care Condition: Good Prescriptions: oxyCODONE [Roxicodone] 5 mg PO Q4HR PRN #30 tablet PRN Reason: Pain Gabapentin [Neurontin] 300 mg PO BID #60 capsule Pantoprazole [Protonix] 40 mg PO QDAC #30 tablet Diet: Regular Activity Restrictions: 10 pound lift limit Shower Restrictions: Yes (sponge bathe while vac in place) Driving Restrictions: Yes (do not drive while using narcotic pain medications) Instruction Topics: Gentamicin solution for injection, Cefazolin injection, Oxycodone tablets or capsules, Pump SWEEPING COMPOUND BLENDER Use, Closure Wound Vacuum Assisted Follow-Up Care: [facility] [place] Clinic - Wound/Ostomy (Twice weekly vac dressing changes) No Smoking: If you smoke, Please STOP! Call for help. Follow-up with: Frances Lara MD [Provider Admit Priv/Credential] -
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
== END 2019-11-04 14:20 | disposition home or self-care (01) | DRG 908 ==
LOC: EDUNIT# → ED 23:43 → SDS 10-31 00:40 → ED 10-31 01:17 → ICU 10-31 03:44
PROVIDERS: ADMIT Surgery; ATTEND Surgery
PROC: 0WJG0ZZ Inspection of Peritoneal Cavity, Open Approach (ICD-10-PCS; principal; 2019-10-31 00:57)
PROC: 0HB7XZZ Excision of Abdomen Skin, External Approach (ICD-10-PCS; 2019-11-01)
DX: S31.123A Laceration of abdominal wall with foreign body, right lower quadrant without penetration into peritoneal cavity, initial encounter (principal); I96 Gangrene, not elsewhere classified; W39.XXXA Discharge of firework, initial encounter; Y92.414 Local residential or business street as the place of occurrence of the external cause; Y99.8 Other external cause status; K42.9 Umbilical hernia without obstruction or gangrene
CPT/HCPCS: 36415; 51702; 71045; 71260; 74177; 80053; 81003; 83036; 83690; 85025; 87150; 90471; 90715; 96374; 96376; 99284; 99285; A9270; J0131; J0330; J1170; J2765; J7040; J7120; Q9967; 80170; 81001; 87086

== ENCOUNTER 2020-01-20 15:48 | Emergency (ER) | payer OTHER ==
[2020-01-20] MEDS ORDERED: DEXAMETHASONE 10 MG/ML VIAL IVP STA (16:10)
[2020-01-20] MEDS ORDERED: EPINEPHrine 1 MG/ML AMP IM STA (16:11)
[2020-01-20 16:27] LABS: BASOPHILS % (AUTO) 0.4 %; EOSINOPHILS # (AUTO) 0.1 10^3/uL (0.0-0.7); EOSINOPHILS % (AUTO) 0.8 %; HGB - HEMOGLOBIN 15.4 g/dL (14.0-18.0); LYMPHOCYTES # (AUTO) 2.3 10^3/uL (1.5-3.5); LYMPHOCYTES % (AUTO) 21.6 %; MEAN CORPUSCULAR HEMOGLOBIN 29.9 pg (27.0-31.0); MEAN CORPUSCULAR HGB CONC 33.5 g/dL (32.0-36.0); MEAN CORPUSCULAR VOLUME 89.3 fL (80.0-94.0); MEAN PLATELET VOLUME 8.3 fL (7.4-11.4); MONOCYTES # (AUTO) 0.5 10^3/uL (0.0-1.0); MONOCYTES % (AUTO) 4.9 %; NEUTROPHILS # (AUTO) 7.7 10^3/uL (1.5-6.6); NEUTROPHILS % (AUTO) 71.9 %; PLT - PLATELET COUNT 310 10^3/uL (130-450); RED BLOOD COUNT 5.15 10^6/uL (4.70-6.10); RED CELL DISTRIBUTION WIDTH 12.1 % (12.0-15.0); WHITE BLOOD COUNT 10.7 x10^3/uL (4.8-10.8)
[2020-01-20 16:41] LABS: ALBUMIN 4.7 g/dL (3.2-5.5); ALBUMIN/GLOBULIN RATIO 1.6 (1.0-2.2); BILIRUBIN,TOTAL 0.6 mg/dL (0.2-1.0); CALCIUM 9.2 mg/dL (8.5-10.3); TOTAL PROTEIN 7.7 g/dL (6.7-8.2)
[2020-01-20] MEDS ORDERED: MORPHINE 2 MG/ML CARPUJECT IVP STA (17:16)
[2020-01-20] MEDS ORDERED: cefTRIAXone 1 GM VIAL IVP STA (17:32)
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
[2020-01-20 18:20] VITALS: BP 126/79
== END 2020-01-20 18:14 | disposition home or self-care (01) ==
LOC: ED 15:48
DX: L53.9 Erythematous condition, unspecified (principal); T50.8X5A Adverse effect of diagnostic agents, initial encounter; Y92.239 Unspecified place in hospital as the place of occurrence of the external cause
CPT/HCPCS: 36415; 80053; 83690; 85025; 85651; 86140; 96374; 96375; 99284

== ENCOUNTER 2022-08-21 10:09 | Outpatient (CLI) | payer OTHER ==
--- NOTE | 2022-08-21 16:48 | MRI Report ---
PROCEDURE: KNEE WO - LT INDICATIONS: PAIN IN LEFT KNEE TECHNIQUE: Noncontrast sagittal PD fast spin echo and T2 fast spin echo with fat saturation, sagittal 3-D gradie nt sequence with fat saturation; coronal T1 spin echo and PD fast spin echo with fat saturation, and axial PD fast spin echo with fat saturation through the knee. COMPARISON: Left knee MRI dated 03/11/2018. FINDINGS: Image quality: Excellent. Menisci: Linear oblique high T2 signal intensity traverses the middle and peripheral thirds of the me dial meniscal body and posterior horn, demonstrating inferior articular surface extension. There is a radial/vertically oriented tear within the posterior horn medial meniscus involving the middle third . Lateral meniscus is intact. Cruciate ligaments: The anterior and posterior cruciate ligaments appear intact. Medial structures: The medial collateral ligament appears intact. Visualized portions of the pes ans erinus tendons appear normal. No abnormal bursal fluid. Lateral structures: The lateral collateral ligament, long and short heads of the biceps femoris tend on appear intact. The popliteus tendon appears. Iliotibial band appears normal. Anterior structures: The quadriceps and patellar tendons appear intact. Mild T2 signal elevation wit hin the quadriceps and patellar tendons at the patellar insertion sites. Patellar alignment is normal . No femoral trochlear dysplasia or ventral trochlear prominence. No edema in the infrapatellar fat pad. Bones and cartilage: No bone marrow contusions or fractures. Previously seen high T2 intensity focus within the lateral femoral condyle posteriorly has increased slightly in size, currently measuring 6 mm diameter, consistent with an enchondroma versus low-grade chondrosarcoma. Mild subchondral degene rative marrow edema within the weightbearing aspects of the medial femoral condyle. Mild tricompartme ntal periarticular osteophyte formation. Moderate articular cartilage loss diffusely overlies the snow ghtbearing aspects of the medial femoral condyle and medial tibial plateau. Joint space: There is a small knee joint effusion and a trace Childs's cyst. Normal appearing synovi al plicae are incidentally noted. IMPRESSION: 1. Medial meniscal tearing as described above. 2. Slight increase in size of low-grade cartilaginous lesion within the distal femur as described abo ve. 3. Tricompartmental osteoarthritis with associated articular cartilage loss. 4. Mild quadriceps and patellar tendinopathy. 5. Knee joint effusion and trace Childs's cyst. Reviewed by: Jose Guadalupe Casarez MD on 08/21/2022 4:47 PM PDT Approved by: Jose Guadalupe Casarez MD on 08/21/2022 4:47 PM PDT Station ID: [id number]
== END 2022-08-21 10:10 | disposition home or self-care (01) ==
LOC: DI 10:09
DX: S83.242A Other tear of medial meniscus, current injury, left knee, initial encounter (principal); M17.12 Unilateral primary osteoarthritis, left knee; M94.262 Chondromalacia, left knee; M67.864 Other specified disorders of tendon, left knee; M25.462 Effusion, left knee; M71.22 Synovial cyst of popliteal space [Baker], left knee